=== PATIENT | female | born 1970 | race African-American/Black ===

== ENCOUNTER 2017-06-17 00:06 | Emergency (ER) | payer SELFPAY ==
[~2017-06-17] VITALS: Ht 165.1 cm; Wt 88.0 kg
[~2017-06-17 00:06] MED LIST: ALBU6.7H INH; AMOX500T PO; DOXY100T PO; PRED20 PO
[2017-06-17 00:08] VITALS: BP 173/107; PULSE 96; RESP 20; TEMP 98.1; O2SAT 96
[2017-06-17] MEDS ORDERED: ALBU6.7H INH (00:16)
[2017-06-17] MEDS ORDERED: PRED20 PO ×2 (00:16→01:23)
--- NOTE | 2017-06-17 00:44 | PD ---
HPI Chief Complaint: Respiratory Distress Time Seen by Provider: 00:24 Travel History International Travel<30 days: No Contact w/Intl Traveler<30days: No Traveled to known affect area: No History of Present Illness HPI Patient is a 47-year-old female with history of adult onset asthma, presents to the emergency room with complaints of asthma exacerbation. Patient reports that for the past 24 hours, she has been feeling short of breath. 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 Patient reports that she has never been hospitalized or intubated for asthma exacerbations. Patient denies any fevers or chills, reports that she has had a nonproductive cough. Patient denies any chest pain. Patient with no other complaints. PFSH Past Medical History Asthma: Yes Respiratory: Yes (ASTHMA) ?: Not Tubal Ligation: Yes Past Surgical History Other Surgery: Yes (TUBAL LIGATION) Social History Alcohol Use: Yes (OCCASIONALLY) Tobacco Use: No Substance Use: No Allergies-Medications (Allergen,Severity, Reaction): Coded Allergies: No Known Allergies (Verified , 06/17/17) Reported Meds & Prescriptions Reported Meds & Active Scripts Active Prednisone 20 Mg Tab 20 Mg PO BID 5 Days Proair Hfa 8.5 GM Inh (Albuterol Sulfate) 90 Mcg/Act Aer 2 Puff INH Q4-6H PRN 108 mcg/actuation Reported Proventil Hfa 6.7 GM Inh (Albuterol Sulfate) 90 Mcg/Act Aer 2 Puff INH Q6H PRN Prednisone 20 Mg Tab 20 Mg PO DAILY Review of Systems General / Constitutional: No: Fever Eyes: No: Visual changes HENT: No: Headaches Cardiovascular: No: Chest Pain or Discomfort Respiratory: Positive: Cough, Shortness of Breath, Wheezing Gastrointestinal: No: Abdominal Pain Genitourinary: No: Dysuria Musculoskeletal: No: Pain Skin: No Rash Neurologic: No: Weakness Psychiatric: No: Depression Endocrine: No: Polydipsia Hematologic/Lymphatic: No: Easy Bruising Physical Exam Narrative GENERAL: Mild distress SKIN: Focused skin assessment warm/dry. HEAD: Atraumatic. Normocephalic. EYES: Pupils equal and round. No scleral icterus. No injection or drainage. ENT: No nasal bleeding or discharge. Mucous membranes pink and moist. NECK: Trachea midline. No JVD. CARDIOVASCULAR: Tachycardia. No murmur appreciated. RESPIRATORY: No accessory muscle use. Scattered wheezing bilaterally GASTROINTESTINAL: Abdomen soft, non-tender, nondistended. Hepatic and splenic margins not palpable. MUSCULOSKELETAL: No obvious deformities. No clubbing. No cyanosis. No edema. NEUROLOGICAL: Awake and alert. No obvious cranial nerve deficits. Motor grossly within normal limits. Normal speech. PSYCHIATRIC: Appropriate mood and affect; insight and judgment normal. Data Data Last Documented VS Vital Signs Date Time Temp Pulse Resp B/P (MAP) Pulse Ox O2 Delivery O2 Flow Rate FiO2 06/17/17 00:29 99 Room Air 06/17/17 00:08 98.1 96 20 173/107 (129) Orders Orders Complete Blood Count With Diff (06/17/17 00:38) Basic Metabolic Panel (Bmp) (06/17/17 00:38) Iv Access Insert/Monitor (06/17/17 00:38) Ecg Monitoring (06/17/17 00:38) Oximetry (06/17/17 00:38) Chest, Single Ap (06/17/17 00:38) Sodium Chloride 0.9% Flush (Ns Flush) (06/17/17 00:45) Methylprednisolone So Succ Inj (Solumedr (06/17/17 00:45) Albuterol-Ipratropium Neb (Duoneb Neb) (06/17/17 00:45) Sodium Chlor 0.9% 1000 Ml Inj (Ns 1000 M (06/17/17 00:45) Potassium Chloride (Kcl) (06/17/17 01:30) Labs Laboratory Tests Test 06/17/17 00:45 White Blood Count 6.5 TH/MM3 Red Blood Count 4.34 MIL/MM3 Hemoglobin 12.1 GM/DL Hematocrit 36.6 % Mean Corpuscular Volume 84.4 FL Mean Corpuscular Hemoglobin 27.8 PG Mean Corpuscular Hemoglobin Concent 33.0 % Red Cell Distribution Width 15.1 % Platelet Count 340 TH/MM3 Mean Platelet Volume 8.0 FL Neutrophils (%) (Auto) 38.0 % Lymphocytes (%) (Auto) 43.1 % Monocytes (%) (Auto) 9.3 % Eosinophils (%) (Auto) 8.4 % Basophils (%) (Auto) 1.2 % Neutrophils # (Auto) 2.5 TH/MM3 Lymphocytes # (Auto) 2.8 TH/MM3 Monocytes # (Auto) 0.6 TH/MM3 Eosinophils # (Auto) 0.5 TH/MM3 Basophils # (Auto) 0.1 TH/MM3 CBC Comment DIFF FINAL Differential Comment Blood Urea Nitrogen 11 MG/DL Creatinine 0.89 MG/DL Random Glucose 97 MG/DL Calcium Level 8.9 MG/DL Sodium Level 139 MEQ/L Potassium Level 3.0 MEQ/L Chloride Level 105 MEQ/L Carbon Dioxide Level 26.7 MEQ/L Anion Gap 7 MEQ/L Estimat Glomerular Filtration Rate 82 ML/MIN MDM Medical Decision Making Medical Screen Exam Complete: Yes Emergency Medical Condition: Yes Medical Record Reviewed: Yes Interpretation(s) EKG at 0037: NSR at 84bpm, qt/qtc: 334/375, no acute st or t wave changes Vital Signs Date Time Temp Pulse Resp B/P (MAP) Pulse Ox O2 Delivery O2 Flow Rate FiO2 06/17/17 00:29 99 Room Air 06/17/17 00:08 98.1 96 20 173/107 (129) 96 Room Air Differential Diagnosis asthma exacerbation, pneumonia Narrative Course Patient is placed on a manager cardiac cath upon arrival to the emergency room. IV solumedrol as well as neb treatments ordered. xray of chest ordered as well. Plan to monitor patient Vital Signs Date Time Temp Pulse Resp B/P (MAP) Pulse Ox O2 Delivery O2 Flow Rate FiO2 06/17/17 00:29 99 Room Air 06/17/17 00:08 98.1 96 20 173/107 (129) 96 Room Air CBC & BMP Diagram 06/17/17 00:45 Calcium Level 8.9 Last Impressions Chest X-Ray 06/17/178 Signed Impressions: Service Date/Time: Saturday, June 17, 2017 01:41 - CONCLUSION: No comparison studies available. Probably no acute disease Art Espinal MD Patient reevaluated, patient feeling much better at this time. Patient with resolution of wheezing. I reviewed all labs and all studies patient detail. Patient will follow-up with his primary care doctor and will return to the emergency room as needed. Diagnosis Primary Impression: Asthma exacerbation Qualified Codes: J45.21 - Mild intermittent asthma with (acute) exacerbation Patient Instructions: General Instructions Departure Forms: Tests/Procedures, Work Release Enter return to work date: Jun 18, 2017 Additional Instructions: Please provide patient with a copy of their lab work and studies at discharge* * Please follow up with your primary care doctor in 2-3 days Return to the ER if symptoms worsen or progress Return to the ER as needed Med/Other Pt SpecificInfo: Prescription(s) given Scripts Prednisone (Prednisone) 20 Mg Tab 20 MG PO BID for 5 Days, #10 TAB 0 Refills Prov: Renetta Maguire DO 06/17/17 Albuterol 8.5 GM Inh (Proair Hfa 8.5 GM Inh) 90 Mcg/Act Aer 2 PUFF INH Q4-6H Y for SHORTNESS OF BREATH, #1 INHALER 0 Refills 108 mcg/actuation Prov: Renetta Maguire DO 06/17/17 Disposition: 01 DISCHARGE HOME Condition: Stable Renetta Maguire DO Jun 17, 2017 00:44
[2017-06-17] MEDS ORDERED: SODIUM CHLOR 0.9% 1000 ML INJ 1,000 ML IV ONE (00:45)
[2017-06-17] MEDS ORDERED: methylPREDNISolone SOD SUCC 125 MG/2 ML VIAL IV PUSH ONE (00:45)
[2017-06-17] MEDS ORDERED: SODIUM CHLORIDE 0.9% FLUSH 10 ML FLUSH IVF PRN (00:45)
[2017-06-17] MEDS: RESP: ALBUTEROL 2.5 MG/IPRATROPIUM 0.5 MG NEB (SCH) INH (00:45)
[2017-06-17 01:02] LABS: AUTOMATED NEUTROPHIL # 2.5 TH/MM3 (1.8-7.7); BASOPHIL # 0.1 TH/MM3 (0-0.2); BASOPHIL % 1.2 % (0.0-2.0); EOSINOPHIL # 0.5 TH/MM3 (0-0.4); EOSINOPHIL % 8.4 % (0.0-4.0); HEMATOCRIT 36.6 % (35.0-46.0); HEMO FLAGS DIFF FINAL; LYMPH % 43.1 % (9.0-44.0); LYMPHOCYTE # 2.8 TH/MM3 (1.0-4.8); MEAN CELL VOLUME 84.4 FL (80.0-100.0); MEAN CORPUSCULAR HEMOGLOBIN 27.8 PG (27.0-34.0); MONO % 9.3 % (0.0-8.0); PLATELET COUNT 340 TH/MM3 (150-450); RED BLOOD COUNT 4.34 MIL/MM3 (4.00-5.30); RED CELL DISTRIBUTION WIDTH 15.1 % (11.6-17.2); WHITE BLOOD COUNT 6.5 TH/MM3 (4.0-11.0)
--- NOTE | 2017-06-17 01:15 | RADRPT ---
EXAM DATE/TIME: 06/17/2017 01:41 [facility] COMPARISON: No previous studies available for comparison. INDICATIONS : Short of breath. MEDICAL HISTORY : None. SURGICAL HISTORY : None. ENCOUNTER: Initial ACUITY: 1 day PAIN SCORE: 0/10 LOCATION: Bilateral chest FINDINGS: Asymmetric density in the medial left apex is felt likely musculoskeletal density related to first ri b. Opacity at the right cardiophrenic angle is potentially fat pad. Lungs otherwise grossly clear. No evidence of effusion or pneumothorax. Cardiomediastinal contours and pulmonary vascular is satisfact ory. CONCLUSION: No comparison studies available. Probably no acute disease Art Espinal MD on June 17, 2017 at 1:11 Board Certified Radiologist. This report was verified electronically.
[2017-06-17 01:19] LABS: BICARBONATE 26.7 MEQ/L (21.0-32.0)
[2017-06-17] MEDS ORDERED: ALBUAER3 INH (01:23)
[2017-06-17] MEDS ORDERED: POTASSIUM CHLORIDE 10 MEQ CONTROLLED RELEASE TAB PO ONE (01:30)
--- NOTE | 2017-06-17 12:17 | EKG ---
Date Performed: 06/17/2017 Time Performed: 00:37:11 PTAGE: 47 years EKG: Sinus rhythm POSSIBLE LEFT ATRIAL ENLARGEMENT BORDERLINE ECG PREVIOUS TRACING 03/17/11 Compared to the prior study of 03/17/11, nonspecific T-wave changes león ve improved. DOCTOR: Slade Huntley Interpretating Date/Time 06/17/2017 12:13:13
== END 2017-06-17 01:53 | disposition home or self-care (01) ==
LOC: NEPC 00:06
DX: J45.901 Unspecified asthma with (acute) exacerbation (principal); R00.0 Tachycardia, unspecified
CPT/HCPCS: 71010; 80048; 85025; 93005; 94640; 94664; 96361; 96374; 99285; J2930; J7030

== ENCOUNTER 2017-08-17 14:13 | Emergency (ER) | payer SELFPAY ==
[~2017-08-17] VITALS: Ht 165.1 cm; Wt 97.5 kg
[~2017-08-17 14:13] MED LIST changes: +ALBUAER3 INH; -AMOX500T PO; -DOXY100T PO
[2017-08-17 14:15] VITALS: BP 133/92; PULSE 108; RESP 20; TEMP 98.2; O2SAT 95
[2017-08-17] MEDS: RESP: ALBUTEROL 2.5 MG/IPRATROPIUM 0.5 MG NEB (SCH) INH ×2 (14:44→14:45)
[2017-08-17] MEDS ORDERED: predniSONE 20 MG TAB PO ONE (14:45)
[2017-08-17] MEDS ORDERED: SODIUM CHLORIDE 0.9% FLUSH 10 ML FLUSH IVF PRN (14:45)
[2017-08-17] MEDS ORDERED: ALBUAER3 INH (15:46)
[2017-08-17] MEDS ORDERED: PRED20 PO (15:46)
--- NOTE | 2017-08-17 15:46 | PD ---
HPI Chief Complaint: Respiratory Symptoms Time Seen by Provider: 14:32 Travel History International Travel<30 days: No Contact w/Intl Traveler<30days: No Traveled to known affect area: No History of Present Illness HPI 47-year-old female complains of shortness of breath. She has a history of asthma. At home inhaler has not been helpful. She reports prednisone has been helpful however it is been about 4 months. No fever. Occasional cough consistent with chronic asthma noted. Location pulmonary. Timing constant. Severity moderate. PFSH Past Medical History Asthma: Yes Respiratory: Yes ?: Not Tubal Ligation: Yes Past Surgical History Other Surgery: Yes (TUBAL LIGATION) Social History Alcohol Use: Yes (2 beer/daily) Tobacco Use: No Substance Use: No Allergies-Medications (Allergen,Severity, Reaction): Coded Allergies: No Known Allergies (Verified Adverse Reaction, Unknown, 08/17/17) Reported Meds & Prescriptions Reported Meds & Active Scripts Active Proair Hfa 8.5 GM Inh (Albuterol Sulfate) 90 Mcg/Act Aer 2 Puff INH Q4-6H PRN 108 mcg/actuation Review of Systems Except as stated in HPI: all other systems reviewed are Neg General / Constitutional: No: Fever Cardiovascular: No: Chest Pain or Discomfort Respiratory: Positive: Shortness of Breath, Wheezing Physical Exam Narrative GENERAL: 47 female pleasant well-nourished well-developed SKIN: Warm and dry. HEAD: Atraumatic. Normocephalic. EYES: Pupils equal and round. No scleral icterus. No injection or drainage. ENT: No nasal bleeding or discharge. Mucous membranes pink and moist. NECK: Trachea midline. No JVD. CARDIOVASCULAR: Tachycardia to about 100. Regular. RESPIRATORY: Wheezing present bilaterally. There is minimal tachypnea. GASTROINTESTINAL: Abdomen soft, non-tender, nondistended. Hepatic and splenic margins not palpable. MUSCULOSKELETAL: Extremities without clubbing, cyanosis, or edema. No obvious deformities. NEUROLOGICAL: Awake and alert. No obvious cranial nerve deficits. Motor grossly within normal limits. Five out of 5 muscle strength in the arms and legs. Normal speech. PSYCHIATRIC: Appropriate mood and affect; insight and judgment normal. Data Data Last Documented VS Vital Signs Date Time Temp Pulse Resp B/P (MAP) Pulse Ox O2 Delivery O2 Flow Rate FiO2 08/17/17 15:34 97 Room Air 08/17/17 14:15 98.2 108 20 133/92 (106) Orders Orders Ecg Monitoring (08/17/17 14:36) Oximetry (08/17/17 14:36) Oxygen Administration (08/17/17 14:36) Chest, Single Ap (08/17/17 14:36) Sodium Chloride 0.9% Flush (Ns Flush) (08/17/17 14:45) Albuterol-Ipratropium Neb (Duoneb Neb) (08/17/17 14:45) Prednisone (Deltasone) (08/17/17 14:45) MDM Medical Decision Making Medical Screen Exam Complete: Yes Emergency Medical Condition: Yes Medical Record Reviewed: Yes Differential Diagnosis Asthma, pneumonia, pneumothorax Narrative Course Chest x-ray shows no dense consolidation or acute current pulmonary disease Vital Signs Date Time Temp Pulse Resp B/P (MAP) Pulse Ox O2 Delivery O2 Flow Rate FiO2 08/17/17 15:34 97 Room Air 08/17/17 14:15 98.2 108 20 133/92 (106) 95 Room Air Patient received DuoNeb times 3. She also received prednisone. We'll send her home with prednisone and a prescription for albuterol inhaler. She reports marked improvement at time of reassessment, 3:40 PM Diagnosis Primary Impression: Asthma exacerbation Qualified Codes: J45.901 - Unspecified asthma with (acute) exacerbation Med/Other Pt SpecificInfo: Prescription(s) given Scripts Prednisone (Prednisone) 20 Mg Tab 20 MG PO BID for 5 Days, #10 TAB 0 Refills Prov: Papito Stoevr MD 08/17/17 Albuterol 8.5 GM Inh (Proair Hfa 8.5 GM Inh) 90 Mcg/Act Aer 2 PUFF INH Q4-6H Y for SHORTNESS OF BREATH, #1 INHALER 0 Refills 108 mcg/actuation Prov: Papito Stover MD 08/17/17 Disposition: 01 DISCHARGE HOME Condition: Stable Papito Stover MD Aug 17, 2017 15:46
--- NOTE | 2017-08-17 15:55 | RADRPT ---
EXAM DATE/TIME: 08/17/2017 15:10 [facility] COMPARISON: CHEST SINGLE AP, June 17, 2017, 1:41. INDICATIONS : Short of breath. MEDICAL HISTORY : Recent flu. SURGICAL HISTORY : None. ENCOUNTER: Initial ACUITY: 1 day PAIN SCORE: 0/10 LOCATION: Bilateral chest FINDINGS: The lungs are clear without infiltrate, nodule, or mass. There is no appreciable pleural effusion fo r technique. Heart and mediastinum are unremarkable. CONCLUSION: No acute cardiopulmonary disease. Gail Peralta MD on August 17, 2017 at 15:53 Board Certified Radiologist. This report was verified electronically.
== END 2017-08-17 16:03 | disposition home or self-care (01) ==
LOC: NEPD 14:13
DX: J45.901 Unspecified asthma with (acute) exacerbation (principal)
CPT/HCPCS: 71010; 94640; 94664; 99284; J7512

== ENCOUNTER 2017-09-03 15:54 | Emergency (ER) | payer SELFPAY ==
[~2017-09-03 15:54] MED LIST changes: -ALBU6.7H INH
[2017-09-03 15:56] VITALS: BP 167/98; PULSE 86; RESP 16; TEMP 98.1; O2SAT 98
--- NOTE | 2017-09-03 16:18 | PD ---
HPI Chief Complaint: Respiratory Symptoms Time Seen by Provider: 16:13 Travel History International Travel<30 days: No Contact w/Intl Traveler<30days: No Traveled to known affect area: No History of Present Illness HPI This is a 47-year-old female who has a history of asthma who presents to the emergency department with increasing wheezing and nonproductive cough that's been going on for 1 week ever since she completed prednisone in early August, constant, moderate severity, worse with exertion, improved with rest. She's been using her albuterol inhaler but it's not been helping. The patient is currently uninsured and doesn't have a primary care physician. She's not on maintenance inhaler. She denies any fevers or chills and denies any productive cough. PFSH Past Medical History Asthma: Yes Respiratory: Yes Tubal Ligation: Yes Past Surgical History Other Surgery: Yes (TUBAL LIGATION) Social History Alcohol Use: Yes (2 beer/daily) Tobacco Use: No Substance Use: No Allergies-Medications (Allergen,Severity, Reaction): Coded Allergies: No Known Allergies (Verified Adverse Reaction, Unknown, 09/03/17) Reported Meds & Prescriptions Reported Meds & Active Scripts Active Flovent Hfa 10.6 GM Inh (Fluticasone Propionate) 44 Mcg/Act Inh 2 Puff INH DAILY Use daily at the same time. Proair Hfa 8.5 GM Inh (Albuterol Sulfate) 90 Mcg/Act Aer 2 Puff INH Q4-6H PRN 108 mcg/actuation Prednisone 20 Mg Tab 40 Mg PO DAILY Take 40 mg (2 tablets) daily for 5 days Prednisone 20 Mg Tab 20 Mg PO BID 5 Days Proair Hfa 8.5 GM Inh (Albuterol Sulfate) 90 Mcg/Act Aer 2 Puff INH Q4-6H PRN 108 mcg/actuation Review of Systems Except as stated in HPI: all other systems reviewed are Neg Physical Exam Narrative GENERAL:Well appearing, no acute distress SKIN: Focused skin assessment warm and dry. HEAD: Atraumatic. Normocephalic. EYES: Pupils equal and round. No injection or drainage. ENT: Moist mucous membranes NECK: Trachea midline. CARDIOVASCULAR: Regular rate and rhythm. No murmur appreciated. RESPIRATORY: Diffuse wheezing, tachypnea, speaking 3 to four word sentences GASTROINTESTINAL: Abdomen soft, non-tender, nondistended. MUSCULOSKELETAL: No obvious deformities. NEUROLOGICAL: Awake and alert. No obvious cranial nerve deficits. Moving all extremities. PSYCHIATRIC: Appropriate mood and affect; insight and judgment normal. Data Data Last Documented VS Vital Signs Date Time Temp Pulse Resp B/P (MAP) Pulse Ox O2 Delivery O2 Flow Rate FiO2 09/03/17 18:15 09/03/17 16:22 97 Room Air 09/03/17 15:56 98.1 86 16 Orders Orders Prednisone (Deltasone) (09/03/17 16:30) Albuterol-Ipratropium Neb (Duoneb Neb) (09/03/17 16:30) Ed Discharge Order (09/03/17 18:06) [facility] Medical Decision Making Medical Screen Exam Complete: Yes Emergency Medical Condition: Yes Interpretation(s) Afebrile, no tachycardia, hypertensive Differential Diagnosis Acute asthma exacerbation, pneumonia, influenza Narrative Course This is a 47-year-old female who has a history of asthma who presents the emergency department with increasing wheezing and shortness of breath. She has no infectious symptoms. She is not hypoxic is diffusely wheezing on arrival. She was given serial bronchodilator treatments and oral prednisone. She feels much better following treatment. Patient will be discharged with prednisone and maintenance inhaler given this is her third visit for acute asthma exacerbation in a short period of time. Diagnosis Primary Impression: Asthma exacerbation Qualified Codes: J45.901 - Unspecified asthma with (acute) exacerbation Patient Instructions: General Instructions Additional Instructions: If you develop severe shortness of breath, chest pain, or difficulty breathing return to the emergency department. Use albuterol every 4 hours for the next 2 days. Then use as needed for wheezing. Complete your course of steroids. Complete your course of antibiotics. Follow up with your primary care physician in 2-3 days if your symptoms have not improved. Med/Other Pt SpecificInfo: Prescription(s) given Scripts Fluticasone 10.6 GM Inh (Flovent Hfa 10.6 GM Inh) 44 Mcg/Act Inh 2 PUFF INH DAILY for Asthma Management, #1 INHALER 0 Refills Use daily at the same time. Prov: Prema Rodriguez MD 09/03/17 Albuterol 8.5 GM Inh (Proair Hfa 8.5 GM Inh) 90 Mcg/Act Aer 2 PUFF INH Q4-6H Y for SHORTNESS OF BREATH, #1 INHALER 0 Refills 108 mcg/actuation Prov: Prema Rodriguez MD 09/03/17 Prednisone (Prednisone) 20 Mg Tab 40 MG PO DAILY, #10 TAB 0 Refills Take 40 mg (2 tablets) daily for 5 days Prov: Prema Rodriguez MD 09/03/17 Disposition: 01 DISCHARGE HOME Condition: Stable Prema Rodriguez MD Sep 03, 2017 16:18
[2017-09-03 16:22] VITALS: O2SAT 97
[2017-09-03] MEDS ORDERED: predniSONE 20 MG TAB PO ONE (16:30)
[2017-09-03] MEDS: RESP: ALBUTEROL 2.5 MG/IPRATROPIUM 0.5 MG NEB (SCH) INH ×2 (16:37→16:38)
[2017-09-03] MEDS ORDERED: FLUTI44I INH (18:06)
[2017-09-03] MEDS ORDERED: PRED20 PO (18:06)
[2017-09-03] MEDS ORDERED: ALBUAER3 INH (18:06)
== END 2017-09-03 18:15 | disposition home or self-care (01) ==
LOC: NEPA 15:54
DX: J45.901 Unspecified asthma with (acute) exacerbation (principal)
CPT/HCPCS: 94640; 94664; 99284; J7512